=== PATIENT | male | born 1990 | race Caucasian/White ===

== ENCOUNTER 2020-02-16 11:44 | Emergency (ER) | payer OTHER ==
[2020-02-16] MEDS ORDERED: CARTRIDGE STAM1 EACH SQ (11:52)
[2020-02-16] MEDS ORDERED: ANTIDEPRESSANT (11:52)
== END 2020-02-16 13:07 | disposition home or self-care (01) ==
LOC: ED 11:44
DX: R55 Syncope and collapse (principal); E10.9 Type 1 diabetes mellitus without complications; Z79.4 Long term (current) use of insulin